=== PATIENT | female | born 1995 ===

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

== ENCOUNTER 2018-02-07 16:25 | Emergency (ER) | payer BC ==
[2018-02-07 16:40] VITALS: BP 120/69
--- NOTE | 2018-02-07 16:48 | UC ---
Eye Complaint HPI - HPI Summary HPI Summary: Pt c/o gradual onset of bilateral eye redness and yellow/green discharge. - History of Current Complaint Chief Complaint: UCEye Stated Complaint: POSSIBLE PINK EYE Time Seen by Provider: 02/07/18 16:46 Hx Obtained From: Patient Hx Last Menstrual Period: 10/20/16 ?: No Onset/Duration: Gradual Onset, Lasting Hours Timing: Constant Severity Initially: Mild Severity Currently: Mild Pain Intensity: 0 Aggravating Factor(s): Contact Lens Associated Signs And Symptoms: Positive: Drainage (Purulent) - Risk Factors Penetrating Injury Risk Factor: Negative Globe Rupture Risk Factors: Negative Acute Glaucoma Risk Factors: Negative Optic Artery Occlusion Risk Factors: Negative - Allergies/Home Medications Allergies/Adverse Reactions: Allergies Allergy/AdvReac Type Severity Reaction Status Date / Time No Known Allergies Allergy Verified 11/07/16 19:08 PMH/Surg Hx/FS Hx/Imm Hx Previously Healthy: Yes - Surgical History Surgical History: None - Family History Known Family History: Positive: Cardiac Disease - Social History Occupation: Student Lives: Dormitory/Roommates Alcohol Use: Occasionally Substance Use Type: None Smoking Status (MU): Never Smoked Tobacco Have You Smoked in the Last Year: No - Immunization History Most Recent Influenza Vaccination: Not the 2016/2017 Season Review of Systems All Other Systems Reviewed And Are Negative: Yes Constitutional: Positive: Negative Skin: Positive: Negative Eyes: Positive: Drainage, Eye Redness ENT: Positive: Negative Respiratory: Positive: Negative Cardiovascular: Positive: Negative Gastrointestinal: Positive: Negative Genitourinary: Positive: Negative Motor: Positive: Negative Neurovascular: Positive: Negative Musculoskeletal: Positive: Negative Neurological: Positive: Negative Psychological: Positive: Negative Is Patient Immunocompromised?: No Physical Exam Triage Information Reviewed: Yes Appearance: Well-Appearing Vital Signs: Initial Vital Signs Temp 97.9 F 02/07/18 16:37 Pulse 67 02/07/18 16:37 Resp 14 02/07/18 16:37 BP 120/69 02/07/18 16:37 Pulse Ox 100 02/07/18 16:37 Vital Signs Reviewed: Yes Eyes: Positive: Conjunctiva Inflamed, Discharge ENT Exam: Normal Dental Exam: Normal Neck exam: Normal Respiratory: Positive: No respiratory distress Musculoskeletal Exam: Normal Neurological Exam: Normal Psychological Exam: Normal Skin Exam: Normal Eye Complaint Course/Dx - Differential Dx/Diagnosis Differential Diagnosis/HQI/PQRI: Conjunctivitis Provider Diagnosis: Conjunctivitis of both eyes Discharge - Sign-Out/Discharge Documenting (check all that apply): Patient Departure All imaging exams completed and their final reports reviewed: No Studies - Discharge Plan Condition: Stable Disposition: HOME Prescriptions: Ofloxacin 0.3% (Eye Drop) [Ocuflox OPTH 0.3% (Eye Drop)] 2 drop BOTH EYES Q8H 7 Days #1 btl Patient Education Materials: Conjunctivitis (ED) Referrals: [facility] [Outside] - If Needed No Primary Care Phys,NOPCP [Primary Care Provider] - - Billing Disposition and Condition Condition: STABLE Disposition: Home
== END 2018-02-07 16:55 | disposition home or self-care (01) ==
LOC: UCCORT 16:25
DX: H10.9 Unspecified conjunctivitis (principal)
CPT/HCPCS: 99212; G0463